=== PATIENT | female | born 1965 | race Asian ===

== ENCOUNTER 2018-01-28 07:24 | Day surgery (SDC) | payer OTHER ==
[~2018-01-28] VITALS: Ht 157.5 cm; Wt 78.0 kg
[2018-01-28 07:53] VITALS: BP 125/74
[2018-01-28 13:24] VITALS: BP 125/76
== END 2018-01-28 11:10 | disposition home or self-care (01) ==
LOC: GI 07:24 → OR 09:30 → GI 09:30
PROVIDERS: Internal Medicine Gastroenterology
PROC: 0DJD8ZZ Inspection of Lower Intestinal Tract, Via Natural or Artificial Opening Endoscopic (ICD-10-PCS; principal; 2018-01-28 09:30)
DX: Z12.11 Encounter for screening for malignant neoplasm of colon (principal); I10 Essential (primary) hypertension; E78.00 Pure hypercholesterolemia, unspecified; Z85.820 Personal history of malignant melanoma of skin
CPT/HCPCS: 45378; J1200; J1610; J2250; J2310; J3010; J3490